=== PATIENT | male | born 1955 | race Caucasian/White ===

== ENCOUNTER → 2017-01-29 | Day surgery (SDC) | payer OTHER ==
[~2017-01-29] MED LIST: ANTIVERT PO; AUGMENTIN875 MG DOB; FISH OIL 1,0001 EAC4 PO; METFORMIN HCL500 M2 PO; MULTI VITAMIN1 EACH PO; NO MEDICATIONS; VITAMIN C + RO500 MG PO
--- NOTE | ~2017-01-29 | OR ---
Unit #: [id number] #: [id number] Patient: NOELLE HERNANDEZ [id number] [address] [place], [place] [address] [id number] MR#: [id number] NAME: NOELLE HERNANDEZ ROOM: Date of Procedure: 01/29/2017 Admission Date: 01/29/2017 Surgeon: Eddie Gardner M.D. : 1955 Attending Physician: Eddie Gardner M.D. Primary Care Physician: Jennifer Powell M.D. OPERATIVE REPORT PREOPERATIVE DIAGNOSES Colorectal cancer screening. PROCEDURES PERFORMED Colonoscopy and polypectomy. POSTOPERATIVE DIAGNOSES 1. The patient had a 1.5 cm sessile polyp in the distal descending colon. This was removed using snare cautery polypectomy. It was retrieved and sent for histology. 2. Rest of the examination up to cecum was normal. The quality of the prep was fair with lot of vegetative matter especially in the left colon, which could not be completely cleared as a result. RECOMMENDATIONS Follow up results of polyp histology and repeat colonoscopy in 3 years. SEDATION USED MAC. DESCRIPTION OF PROCEDURE Following detailed explanation of the potential risks and complications of a colonoscopy, namely perforation, bleeding, and complications related to sedation, the patient was brought to GI lab and laid in the left lateral decubitus position. A digital rectal examination was performed, which was normal. Lubricated tip of the Olympus video colonoscope was inserted through the anus and advanced under direct vision. The scope was advanced and passed up to sigmoid into descending colon. No diverticula were seen in this area. The scope tip was then navigated all the way up to cecum with visualization of the ileocecal valve and the appendiceal orifice. Preparation was fair. There being lot of vegetative matter especially in the left colon; however, the underneath mucosa was normal. Last few inches of the terminal ileum also visualized after intubation of the ileocecal valve and appeared normal. Successive segments of the colonic mucosa were examined upon withdrawal and appeared unremarkable except for a single sessile polyp in the distal descending colon. This was about 1.5 cm in size. It was removed using snare cautery polypectomy. The polyp was retrieved and sent for histology. No additional polyps noted. The patient did not have any diverticulosis nor any hemorrhoids. The scope was then withdrawn. The patient returned to the recovery area. He tolerated the procedure without any postprocedure complications. Unit #: [id number] #: [id number] Patient: NOELLE HERNANDEZ Dictated by.Greta Goss/jonel TD: 01/29/2017 22:37 JOB #: [id number] OPERATIVE REPORT Page 1 of 1 X Eddie Gardner MD X PROCEDURE OPERATIVE NOTE
== END | disposition home or self-care (01) ==
LOC: COPS 07:41
PROVIDERS: Internal Medicine Gastroenterology
PROC: 0DBM8ZX Excision of Descending Colon, Via Natural or Artificial Opening Endoscopic, Diagnostic (ICD-10-PCS; principal; 2017-01-29 09:00)
DX: Z12.11 Encounter for screening for malignant neoplasm of colon (principal); D12.4 Benign neoplasm of descending colon; E11.9 Type 2 diabetes mellitus without complications; Z79.84 Long term (current) use of oral hypoglycemic drugs; G47.30 Sleep apnea, unspecified; Z87.891 Personal history of nicotine dependence; Z98.890 Other specified postprocedural states
CPT/HCPCS: 82947; 88305; J2250